=== PATIENT | male | born 1940 | race Caucasian/White ===

== ENCOUNTER → 2019-12-09 | Outpatient (CLI) | payer MEDICARE ==
[~2019-12-09] MED LIST: ACET500T73 PO; AMLO5TAB10 PO; ASPI325T14 PO; ATOR40TA PO; AZIT500T PO; Aspirin PO; BUDE180A IH; CARV6.25 PO; CARV6.252 PO; CEPH250C PO; FLUT1AER IH; FLUT1BLS IH; LEVO50TA6 PO; LISI1TAB19 PO; LORA10TA3 PO; LOSA100T14 PO; OMEP20CA19 PO; POTA10TA10 PO; PRAV40TA2 PO; SPIR25TA PO
== END | disposition home or self-care (01) ==
LOC: SLAB 19:43
PROVIDERS: ATTEND Specialist
DX: G47.33 Obstructive sleep apnea (adult) (pediatric) (principal); G47.10 Hypersomnia, unspecified
CPT/HCPCS: 95810

== ENCOUNTER 2020-08-12 01:07 | Emergency (ER) | payer MEDICARE ==
[~2020-08-12] VITALS: Ht 175.3 cm; Wt 99.8 kg
[~2020-08-12 01:07] MED LIST changes: +AMLO-169 PO; -AMLO5TAB10 PO; -LISI1TAB19 PO; +LISI1TAB39 PO
[2020-08-12 01:17] VITALS: BP 163/77
[2020-08-12] MEDS ORDERED: ANTIVERT PO STA (01:31)
--- NOTE | 2020-08-12 01:33 | NUR ---
PUPILS PATIENT INFORMED PHYSICIAN THAT HE WAS TOLD RECENTLY AT A [employer] APPOINTMENT THAT ONE PUPIL IS LARGER THAN THE OTHER, STATES HE HAS "APPARENTLY HAD IT A LONG TIME, AND I NEVER KNEW IT."
[2020-08-12] MEDS ORDERED: ANTIVERT ONE (01:35)
--- NOTE | 2020-08-12 01:38 | ER.PDOC ---
General Chief Complaint: Dizziness Stated Complaint: DIZZINESS Time seen by MD: 01:25 Source: patient Exam Limitations: no limitations History of Present Illness Initial Comments Patient c/o progressively worsening 2 day history of "dizziness" which he describes as rotational movement, worse with positional change. Occurred: yesterday Severity: moderate Associated Symptoms: nausea/vomiting, sense of movement, spinning Usually: walks w/o assistance Worsened By: changing position, movement of head Prior symptoms/Treatment: Similar symptoms previous (never this bad or persistent) Allergies: Coded Allergies: No Known Allergies (Unverified , 01/24/18) Home Meds Active Scripts Carvedilol (CARVEDILOL) 6.25 Mg Tablet, 6.25 MG PO BID for 30 Days, TABLET Prov:MARCOS ARMAS MD 02/10/17 Reported Medications Fluticasone/Vilanterol (Breo Ellipta 200-25 Mcg INH) 1 Each Blst.w.dev, 1 EACH IH DAILY24 01/27/18 Fluticasone/Vilanterol (Breo Ellipta 200-25 Mcg INH) 1 Each Blst.w.dev, 2 EACH IH DAILY24 01/24/18 Spironolactone 25MG (ALDACTONE 25MG) 25 Mg Tablet, 1 TAB PO DAILY, #90 TAB 1 Refill 01/24/18 Atorvastatin 40MG (LIPITOR 40MG) 40 Mg Tablet, 1 TAB PO DAILY, #30 TAB 5 Refills 02/04/17 Losartan Potassium (LOSARTAN POTASSIUM) 100 Mg Tablet, 1 TAB PO DAILY, #30 TAB 5 Refills 02/04/17 Levothyroxine Sodium (LEVOTHYROXINE SODIUM) 50 Mcg Tablet, 50 MCG PO DAILY, TABLET 03/24/14 Past Medical History Medical History: arrhythmia, cardiac problems, COPD, high cholesterol, hypertension, other (perforated duodenal ulcer; unequal pupils longstanding) Surgical History: back, pacemaker/ICD, other (laparotomy; cataracts) Family History Significant Family History: no pertinent family hx Social History Smoking: quit greater than 1 year Alcohol Use: none Drug Use: none Review of Systems Constitutional: no symptoms reported Eyes: no symptoms reported Ears: no symptoms reported Nose: no symptoms reported Mouth: no symptoms reported Throat: no symptoms reported Respiratory: no symptoms reported Cardiovascular: no symptoms reported Gastrointestinal: nausea Genitourinary: no symptoms reported Musculoskeletal: no symptoms reported Skin: no symptoms reported Psychiatric/Neurological: other (dizziness with positional change) Physical Exam General Appearance: alert, no distress EENT: no nystagmus, unequal pupils (right 4mm, left 2mm) Neck: supple Respiratory: no resp distress, breath sounds nml CVS: reg rate & rhythm, heart sounds.nml Abdomen: non-tender, no distention Skin: color nml, no rash, warm/dry Extremities: non-tender, nml ROM, no pedal edema Neuro/Psych: nml orientation, nml speech/cognition, nml mood/affect Cranial Nerves: nml as tested, no evidence of acute CVA Sensorimotor: nml motor Results/Orders Results/Orders Orders - JOSE WILDE DO Cbc With Auto Diff (08/12/20 01:31) Comprehensive Metabolic Panel (08/12/20:) Creatine Kinase (08/12/20:31) PT (08/12/20:31) Xr Chest 1v (08/12/20:31) Partial Thromboplastin Time. (08/12/20:31) Troponin I (08/12/20:31) Ekg-Routine (08/12/20 01:31) Ct Head Wo Contrast (08/12/20:31) Saline Lock (08/12/20:31) Meclizine Hcl (Antivert) (08/12/20 01:31) 0.9 % Sodium Chloride (Ns 1000ml) (08/12/20 02:14) 0.9 % Sodium Chloride (Ns 1000ml) (08/12/20 02:12) Vital Signs Date Time Temp Pulse Resp B/P (MAP) Pulse Ox O2 Delivery O2 Flow Rate FiO2 08/12/20 01:17 97.0 66 16 100 08/12/20 01:17 97.0 66 16 08/12/20 01:17 97.0 66 16 163/77 (105) 100 Administered Medications Medications (Trade) Dose Ordered Sig/Holly Route PRN Reason Start Time Stop Time Status Last Admin Dose Admin Meclizine HCl (Antivert) 50 mg STAT STAT PO 08/12/20 01:31 08/12/20 01:32 UNV 08/12/20 01:38 50 MG Laboratory Tests Test 08/12/20 01:40 White Blood Count 9.8 10^3/uL (4.5-11.0) Red Blood Count 4.77 10^6/uL (4.50-5.90) Hemoglobin 14.8 g/dL (13.9-16.3) Hematocrit 44.4 % (37.0-53.0) Mean Corpuscular Volume 93.1 fL (78-100) Mean Corpuscular Hemoglobin 31.0 pg (26-34) Mean Corpuscular Hemoglobin Concent 33.3 g/dL (33-36.5) Red Cell Distribution Width 13.1 % (11.5-14.5) Platelet Count 236 10^3/uL (150-400) Mean Platelet Volume 10.4 fL (7.8-11.0) Neutrophils (%) (Auto) 63.2 % (41.0-85.0) Lymphocytes (%) (Auto) 20.0 % (24.0-44.0) L Monocytes (%) (Auto) 11.7 % (5.0-12.0) Neutrophils # (Auto) 6.2 10^3/uL (1.8-7.7) Lymphocytes # (Auto) 1.97 10^3/uL1 (1.0-4.8) Monocytes # (Auto) 1.2 10^3/uL (0.3-0.8) H Absolute Immature Granulocyte (auto 0.02 10^3 u/L (0-2) Absolute Eosinophils (auto) 0.4 10^3/uL (0.0-0.2) H Immature Granulocytes % 0.20 % (0.00-0.50) Eosinophils % 4.0 % (0.0-5.0) Basophils % 0.9 % (0.0-0.2) H Basophils # 0.1 10^3/uL (0.0-0.1) Prothrombin Time 10.3 SEC (9.3-11.3) Prothrombin Time INR (Non-Therap) 1.0 Activated Partial Thromboplast Time 23.8 SEC (24.67-30.72) Sodium Level 139 mmol/L (132-145) Potassium Level 4.4 mmol/L (3.6-5.2) Chloride Level 106.0 mmol/L (96-109) Carbon Dioxide Level 24.4 mmol/L (20.0-32) Anion Gap 13.0 Blood Urea Nitrogen 22 mg/dL (7-18) H Creatinine 1.45 mg/dL (0.59-1.40) H Estimated GFR () 56.8 (>/=60) Est GFR (CKD-EPI)(Non-Afr Nigerien) 46.9 (>/=60) BUN/Creatinine Ratio 15.0 Glucose Level 115 mg/dL (70-110) H Calcium Level 8.7 mg/dL (8.4-10.5) Total Bilirubin 0.4 mg/dL (0.2-1.0) Aspartate Amino Transferase (AST) 20 U/L (0-35) Alanine Aminotransferase (ALT) 37 U/L (12-78) Alkaline Phosphatase 83 U/L (50-136) Total Creatine Kinase 164 U/L (39-308) Troponin I < 0.02 ng/mL (0.00-0.05) Total Protein 7.3 g/dL (6.4-8.2) Albumin 3.7 g/dL (3.4-5.0) Globulin 3.6 Albumin/Globulin Ratio 1.027 Progress Progress BUN/creat slightly elevated--1L NS bolused. Vertigo has improved with meclizine. EKG/XRAY/CT/US EKG Comments: NSR, VR 82, multiform PVCs, QT 409, no acute STT changes XRAY: chest (no acute dz process) CT Comments: no acute intracranial pathology ER DEPART Departure Time of Disposition: 02:36 Disposition: 01 HOME, SELF-CARE Impression: Primary Impression: Vertigo Additional Impression: Volume depletion Condition: Improved Patient Instructions: Benign Positional Vertigo Referrals: PCP,UNKNOWN (PCP) PRIMARY CARE PROVIDER Additional Instructions: Drink at least 6 eight-ounce valladares daily. Take meclizine as prescribed when needed for dizziness/vertigo. Return to ER for any emergent concerns. Follow up with your doctor next week for reevaluation. Duration or Time Spent with Pa: 25 min Problem Qualifiers JOSE WILDE DO Aug 12, 2020 01:38
--- NOTE | 2020-08-12 01:41 | NUR ---
CT PATIENT TAKEN TO CT AT THIS TIME VIA STRETCHER BY JOLYNN
[2020-08-12 01:50] LABS: BASOPHIL # 0.1 10^3/uL (0.0-0.1); BASOPHIL % 0.9 % (0.0-0.2); EOSINOPHIL # 0.4 10^3/uL (0.0-0.2); LYMPHOCYTES # 1.97 10^3/uL1 (1.0-4.8); MONOCYTES # 1.2 10^3/uL (0.3-0.8); MONOCYTES % 11.7 % (5.0-12.0); NEUTROPHIL # 6.2 10^3/uL (1.8-7.7); NEUTROPHILS % 63.2 % (41.0-85.0); PLATELET COUNT 236 10^3/uL (150-400); RED CELL DISTRIBUTION WIDTH 13.1 % (11.5-14.5)
--- NOTE | 2020-08-12 01:58 | PCM.EKG ---
[facility] Test Date: 2020-08-12 Test Time: 01:55:54 Pat Name: DALE SOLIMAN Department: Room: Gender: M Artist Scientific: TG : 1940 Requested By: JOSE ROBERTSON Order Number: [id number] Reading MD: Danya Robertson Measurements Intervals [place] Rate: 82 P: 78 FL: 196 QRS: 55 QRSD: 80 T: 63 QT: 409 QTc: 478 Interpretive Statements Sinus rhythm Multiform ventricular premature complexes No previous ECG available for comparison Electronically Signed On 08-15-2020 7:12:15 CDT by Danya Robertson Please click the below link to view image of tracing.
[2020-08-12 02:11] LABS: ALANINE AMINOTRANSFERASE(ML) 37 U/L (12-78); ALKALINE PHOSPHATASE 83 U/L (50-136); ASPARTATE AMINO TRANSFERASE 20 U/L (0-35); CALCIUM 8.7 mg/dL (8.4-10.5); CARBON DIOXIDE 24.4 mmol/L (20.0-32); GLUCOSE 115 mg/dL (70-110)
[2020-08-12] MEDS ORDERED: NS 1000ML 1,000 ML ONE (02:12)
[2020-08-12] MEDS ORDERED: NS 1000ML 1,000 ML STA (02:14)
--- NOTE | 2020-08-12 02:24 | DIREP ---
PROCEDURE:CT HEAD OR BRAIN W/O CONTRAST COMPARISON:None. INDICATIONS:dizziness TECHNIQUE:CT images were created without intravenous contrast. FINDINGS: VENTRICLES:The ventricles are normal in size and configuration. CEREBRUM:Small foci of diminished attenuation in the supratentorial white matter consistent with mild leukoaraiosis. Probable prominent perivascular space in the left basal ganglia. CEREBELLUM:Negative. BRAINSTEM:Negative. BASAL CISTERNS:Negative. HEMORRHAGE:No MASS LESION:No ACUTE INFARCT:No SKULL:Normal. SINUSES:Mild mucosal thickening in the ethmoid air cells and left maxillary sinus. OTHER:Intracranial vascular calcifications are noted. 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 CONCLUSION:No acute intracranial abnormality. Small foci of diminished attenuation in the supratentorial white matter compatible with chronic microangiopathic changes. Dictated by: Uli Cortes MD. on 08/12/2020 at 02:19 AM
--- NOTE | 2020-08-12 02:26 | DIREP ---
PROCEDURE:CHEST 1 VIEW COMPARISON:[facility], CR, XRAY CHEST 2 VWS, 01/24/2018, 10:04 AM. [facility], CR, XRAY CHEST 2 VWS, 12/31/2017, 03:46 PM. INDICATIONS:dizziness FINDINGS: LUNGS/PLEURA:Background of chronic lung disease with increased reticular opacities and subsegmental atelectasis/scarring in the left lung base. No significant pulmonary parenchymal abnormalities. No effusions. VASCULATURE:Normal. Unremarkable pulmonary vasculature. CARDIAC:Normal. No cardiac silhouette abnormality or cardiomegaly. MEDIASTINUM:Atherosclerotic aorta with no visible aneurysm. BONES:Degenerative changes in the spine and shoulders. OTHER:Stable left subclavian approach AICD. CONCLUSION:No acute cardiopulmonary process or significant interval change. Dictated by: Uli Cortes MD. on 08/12/2020 at 02:23 AM
--- NOTE | 2020-08-12 03:15 | NUR ---
DISCHARGE DR. WILDE SPOKE WITH PATIENT REGARDING TEST/LAB RESULTS, DISCHARGE BACK HOME PATIENT STATED HE HAS ABSOLUTELY NO ONE TO TAKE HIM BACK HOME. THE REASON HE CALLED THE AMBULANCE WAS BECAUSE HE WAS TOO DIZZY TO DRIVE HIM SELF HERE. DR. WILDE EXPLAINED TO THE PATIENT THAT HE COULD STAY IN THE ROOM UNTIL DAYTIME AND A RIDE WILL BE ARRANGED FOR HIM. PATIENT VERBALIZED UNDERSTANDING, DISCHARGE PAPERS PREPARED, ROOM DARKENED, WARM BLANKETS PROVIDED.
--- NOTE | 2020-08-12 04:13 | NUR ---
RESTROOM PATIENT STATED THAT HE NEEDED TO USE THE RESTROOM. BOAT WRAPPER ASSISTED PATIENT TO RESTROOM VIA WHEELCHAIR.
== END 2020-08-12 03:45 | disposition home or self-care (01) ==
LOC: EDBD 01:07 → ER 01:07
DX: E86.9 Volume depletion, unspecified (principal); R42 Dizziness and giddiness; R11.2 Nausea with vomiting, unspecified; J44.9 Chronic obstructive pulmonary disease, unspecified; E78.00 Pure hypercholesterolemia, unspecified; I10 Essential (primary) hypertension; Z79.51 Long term (current) use of inhaled steroids; Z79.899 Other long term (current) drug therapy; Z95.0 Presence of cardiac pacemaker; Z87.891 Personal history of nicotine dependence
CPT/HCPCS: 36415; 70450; 71045; 80053; 82550; 84484; 85025; 85610; 85730; 93005; 96360; 99285; J7030; J8597

== ENCOUNTER 2021-10-08 18:29 | Emergency (ER) | payer MEDICARE ==
[~2021-10-08] VITALS: Ht 175.3 cm; Wt 97.5 kg
[2021-10-08] MEDS ORDERED: DEXAMETHASONE 10 MG/ML VIAL IV STA (19:39)
[2021-10-08] MEDS ORDERED: DUO 0.5-3(2.5) MG/3 ML IH STA (19:39)
[2021-10-08 19:41] VITALS: BP 142/96
--- NOTE | 2021-10-08 20:06 | DIREP ---
PROCEDURE:CHEST 1 VIEW COMPARISON:[facility], CR, XRAY CHEST SINGLE VW, 08/12/2020, 01:23 AM. INDICATIONS:dyspnea and cough FINDINGS: LUNGS/PLEURA:No significant pulmonary parenchymal abnormalities. No effusions. VASCULATURE:Normal. Unremarkable pulmonary vasculature. CARDIAC:Normal. No cardiac silhouette abnormality or cardiomegaly. MEDIASTINUM:Normal. No visible mass or adenopathy. BONES:Normal. No fracture or visible bony lesion. OTHER:Multi lead left ICD CONCLUSION:Negative exam Dictated by: Driss Hunt M.D. on 10/08/2021 at 08:03 PM
[2021-10-08] MEDS ORDERED: DUO 0.5-3(2.5) MG/3 ML IH ONE (20:24)
--- NOTE | 2021-10-08 20:24 | NUR ---
RT unable to admin HHN, done by RN.
[2021-10-08] MEDS ORDERED: DECADRON ONE (20:25)
--- NOTE | 2021-10-08 20:30 | NUR ---
20g SL started to RAC x'1 attempt, blood obtained and sent to lab.
--- NOTE | 2021-10-08 20:46 | ER.PDOC ---
General Chief Complaint: Dyspnea/Respdistress Stated Complaint: SOB Time seen by MD: 19:21 Source: patient Exam Limitations: no limitations History of Present Illness Initial Comments 81-year-old male with a history of COPD comes in today with worsening shortness of breath and productive cough. Patient states that he has had symptoms now for over a week of cough and shortness of breath. Patient states that his doctor had given him an antibiotic for 5 days which he took with his symptoms did not improve he was then switched to Levaquin which he finished today but states he still feels short of breath, orthopnea, yellow sputum, no fever, no chills, no leg swelling, no chest pain, no other symptomatology that he is concerned about. Patient states he typically gets a shot of steroids in his nebulizer treatment with antibiotics and feels better. Severity: moderate Activities at Onset: activity/exertion Prior Episodes/Possible Cause: no prior episodes Modifying Factors: improves with activity, improves with albuterol nebulizer, improves with coughing, improves with lying down Allergies: Coded Allergies: No Known Allergies (Unverified , 01/24/18) Home Meds Active Scripts Carvedilol (CARVEDILOL) 6.25 Mg Tablet, 6.25 MG PO BID for 30 Days, TABLET Prov:MARCOS ARMAS MD 02/10/17 Reported Medications Fluticasone/Vilanterol (Breo Ellipta 200-25 Mcg INH) 1 Each Blst.w.dev, 1 EACH IH DAILY24 01/27/18 Fluticasone/Vilanterol (Breo Ellipta 200-25 Mcg INH) 1 Each Blst.w.dev, 2 EACH IH DAILY24 01/24/18 Spironolactone 25MG (ALDACTONE 25MG) 25 Mg Tablet, 1 TAB PO DAILY, #90 TAB 1 Refill 01/24/18 Atorvastatin 40MG (LIPITOR 40MG) 40 Mg Tablet, 1 TAB PO DAILY, #30 TAB 5 Refills 02/04/17 Losartan Potassium (LOSARTAN POTASSIUM) 100 Mg Tablet, 1 TAB PO DAILY, #30 TAB 5 Refills 02/04/17 Levothyroxine Sodium (LEVOTHYROXINE SODIUM) 50 Mcg Tablet, 50 MCG PO DAILY, TABLET 03/24/14 Past Medical History Medical History: cardiac problems, COPD, high cholesterol, hypertension Surgical History: no surgical history Social History Alcohol Use: none Drug Use: none Review of Systems Constitutional: denies no symptoms reported, denies see HPI, denies chills, denies diaphoresis, denies fever, denies malaise, denies weakness, denies other Respiratory: cough, orthopnea, shortness of breath Cardiovascular: denies no symptoms reported, denies see HPI, denies chest pain, denies edema, denies palpitations, denies syncope, denies other Musculoskeletal: denies no symptoms reported, denies see HPI, denies back pain, denies gout, denies joint pain, denies joint swelling, denies muscle pain, denies muscle stiffness, denies neck pain, denies other All Other Systems: Reviewed and Negative Physical Exam General Appearance: No Apparent Distress, WD/WN HEENT: PERRL/EOMI, Normal ENT Inspection, Pharynx Normal Neck: Non-Tender, Full Range of Motion, Supple, Normal Inspection Respiratory: chest non-tender, no respiratory distress, accessory muscle use, wheezing, expiration, inspiration Cardiovascular: Normal Peripheral Pulses, Regular Rate, Rhythm, No Edema, No Gallop, No JVD, No Murmur Gastrointestinal: Normal Bowel Sounds, No Organomegaly, No Pulsatile Mass, Non Tender, Soft Rectal: Normal Exam Extremities: Normal Range of Motion, Non-Tender, Normal Inspection, No Pedal Edema, No Calf Tenderness, Normal Capillary Refill Neurologic/Psychiatric: No Motor/Sensory Deficits, Alert, Normal Mood/Affect, Oriented x 3 Skin: Normal Color, Warm/Dry Lymphatic: No Adenopathy Results/Orders Results/Orders Orders - EJESIEME,DOMINIC C DO Covid19 Antigen Khushi Jayshree (10/08/21 19:39) Influenza A&B (10/08/21 19:39) Cbc With Auto Diff (10/08/21 19:39) Comprehensive Metabolic Panel (10/08/21 19:39) Probnp B-Type Hand Stitcher (10/08/21 19:39) Troponin I High Sensitivity (10/08/21 19:39) Xr Chest 1v (10/08/21 19:39) Ipratropium/Albuterol Sulfate (Duo 0.5-3 (10/08/21 19:39) Dexamethasone Sodium Phosp/Pf (Dexametha (10/08/21 19:39) Ipratropium/Albuterol Sulfate (Duo 0.5-3 (10/08/21 20:24) Dexamethasone Sodium Phosphate (Decadron (10/08/21 20:25) Ekg-Routine (10/08/21 20:46) Vital Signs Date Time Temp Pulse Resp B/P (MAP) Pulse Ox O2 Delivery O2 Flow Rate FiO2 10/08/21 19:41 98.2 84 20 10/08/21 19:41 98.2 84 20 93 10/08/21 19:41 98.2 84 20 142/96 (111) 93 Room Air Administered Medications Medications (Trade) Dose Ordered Sig/Holly Route PRN Reason Start Time Stop Time Status Last Admin Dose Admin Albuterol/ Ipratropium (Duo 0.5-3(2.5) Mg/3 ml) 3 ml STAT STAT IH 10/08/21 19:39 10/08/21 19:42 DC 10/08/21 20:35 3 ML Laboratory Tests Test 10/08/21 20:40 White Blood Count 12.3 10^3/uL (4.5-11.0) H Red Blood Count 5.22 10^6/uL (4.50-5.90) Hemoglobin 16.4 g/dL (13.9-16.3) H Hematocrit 50.3 % (37.0-53.0) Mean Corpuscular Volume 96.4 fL (78-100) Mean Corpuscular Hemoglobin 31.4 pg (26-34) Mean Corpuscular Hemoglobin Concent 32.6 g/dL (33-36.5) L Red Cell Distribution Width 13.2 % (11.5-14.5) Platelet Count 250 10^3/uL (150-400) Mean Platelet Volume 10.7 fL (7.8-11.0) Neutrophils (%) (Auto) 65.7 % (41.0-85.0) Lymphocytes (%) (Auto) 15.7 % (24.0-44.0) L Monocytes (%) (Auto) 8.7 % (5.0-12.0) Neutrophils # (Auto) 8.1 10^3/uL (1.8-7.7) H Lymphocytes # (Auto) 1.92 10^3/uL1 (1.0-4.8) Monocytes # (Auto) 1.1 10^3/uL (0.3-0.8) H Absolute Immature Granulocyte (auto 0.02 10^3 u/L (0-2) Absolute Eosinophils (auto) 1.1 10^3/uL (0.0-0.2) H Immature Granulocytes % 0.20 % (0.00-0.50) Eosinophils % 8.6 % (0.0-5.0) H Basophils % 1.1 % (0.0-0.2) H Basophils # 0.1 10^3/uL (0.0-0.1) Sodium Level 137 mmol/L (132-145) Potassium Level 4.9 mmol/L (3.6-5.2) Chloride Level 103.0 mmol/L (96-109) Carbon Dioxide Level 23.0 mmol/L (20.0-32) Anion Gap 15.9 Blood Urea Nitrogen 37 mg/dL (7-18) H Creatinine 1.91 mg/dL (0.59-1.40) H Estimated GFR () 41.2 (>/=60) Est GFR (CKD-EPI)(Non-Afr Polish) 34.1 (>/=60) BUN/Creatinine Ratio 19.0 Glucose Level 119 mg/dL (70-110) H Calcium Level 9.6 mg/dL (8.4-10.5) Total Bilirubin 0.5 mg/dL (0.2-1.0) Aspartate Amino Transferase (AST) 27 U/L (0-35) Alanine Aminotransferase (ALT) 27 U/L (12-78) Alkaline Phosphatase 86 U/L (50-136) Troponin I High Sensitivity 9 ng/L (0-75) Pro-B-Type Natriuretic Peptide 58 pg/mL (0-450) Total Protein 8.1 g/dL (6.4-8.2) Albumin 4.1 g/dL (3.4-5.0) Globulin 4.0 Albumin/Globulin Ratio 1.025 Influenza Type A Antigen NEGATIVE (NEG) Influenza Type B Antigen NEGATIVE (NEG) SARS-CoV-2 Antigen (Rapid) NEGATIVE (NEGATIVE) Progress Progress 81-year-old male with a history of COPD presenting with cough and worsening shortness of breath. Patient is not hypoxic, not tachycardic, afebrile. Patient has already had 2 antibiotic courses with no improvement I do feel that patient is having a COPD exacerbation and have a low suspicion/low likelihood of infectious process given the failure to both/2 antibiotics. This does not preclude or exclude viral pneumonia which may be part of patient's symptomatolog y. Will treat with albuterol for home prednisone taper and close monitoring and follow-up. Patient instructed to get a home pulse oximeter if oxygen were to fall less than 92% he is to return to ED for further evaluation EKG/XRAY/CT/US EKG Comments: EKG at 9:13 PM sinus rhythm at a rate of 77 PVCs, QTC at 417. No STEMI, no ER DEPART Departure Time of Disposition: 21:29 Disposition: 01 HOME / SELF CARE / HOMELESS Impression: Primary Impression: Chronic obstructive pulmonary disease Condition: Stable Patient Instructions: Chronic Obstructive Pulmonary Disease Exacerbation, Lltz-of-Ntty Referrals: MARCOS ARMAS MD (PCP) PRIMARY CARE PROVIDER Duration or Time Spent with Pa: 45 min DOMINIC HAJI DO Oct 08, 2021 20:46
[2021-10-08 20:53] LABS: BASOPHIL # 0.1 10^3/uL (0.0-0.1); BASOPHIL % 1.1 % (0.0-0.2); EOSINOPHIL # 1.1 10^3/uL (0.0-0.2); EOSINOPHIL % 8.6 % (0.0-5.0); LYMPHOCYTES # 1.92 10^3/uL1 (1.0-4.8); LYMPHOCYTES % 15.7 % (24.0-44.0); MEAN CORP HGB 31.4 pg (26-34); MONOCYTES # 1.1 10^3/uL (0.3-0.8); MONOCYTES % 8.7 % (5.0-12.0); NEUTROPHIL # 8.1 10^3/uL (1.8-7.7); NEUTROPHILS % 65.7 % (41.0-85.0); PLATELET COUNT 250 10^3/uL (150-400); RED CELL DISTRIBUTION WIDTH 13.2 % (11.5-14.5)
--- NOTE | 2021-10-08 21:15 | NUR ---
Lab- Pt is negative for Covid, EDP notified.
[2021-10-08 21:35] VITALS: BP 138/82
--- NOTE | 2021-10-08 21:35 | NUR ---
SL dc'd with cath intact. Site secured with coban. No bleeding noted.
--- NOTE | 2021-10-09 08:14 | PCM.EKG ---
[facility] Test Date: 2021-10-08 Test Time: 21:13:26 Pat Name: DALE SOLIMAN Department: Room: Gender: M Dynamite Shooter: : 1940 Requested By: EVELYN BURGESS Order Number: [id number] Reading MD: Evelyn Burgess Measurements Intervals [place] Rate: 77 P: 74 ND: 190 QRS: 59 QRSD: 79 T: 56 QT: 368 QTc: 417 Interpretive Statements Sinus rhythm Multiform ventricular premature complexes Compared to ECG 08/12/2020 01:55:54 No significant changes Electronically Signed On 10-09-2021 18:26:07 CROSSTIE INSPECTOR by Evelyn Burgess Please click the below link to view image of tracing.
== END 2021-10-08 21:35 | disposition home or self-care (01) ==
LOC: ER 18:29
DX: J44.9 Chronic obstructive pulmonary disease, unspecified (principal); E78.00 Pure hypercholesterolemia, unspecified; I10 Essential (primary) hypertension; Z20.822 Contact with and (suspected) exposure to COVID-19; Z79.51 Long term (current) use of inhaled steroids; Z79.899 Other long term (current) drug therapy
CPT/HCPCS: 71045; 80053; 83880; 84484; 85025; 87426; 87804 ×2; 93005; 94640; 96374; 99285; J1100

== ENCOUNTER 2022-01-29 07:17 | Emergency (ER) | payer MEDICARE ==
[2022-01-29 07:17] VITALS: BP 129/72
[2022-01-29 07:20] VITALS: BP 129/72
--- NOTE | 2022-01-29 07:25 | ER.PDOC ---
General Chief Complaint: Requesting Medical Care Stated Complaint: RIGHT ARM PAIN,CHEST PAIN Time seen by MD: 07:24 Source: patient Exam Limitations: no limitations History of Present Illness Initial Comments Patient presented with chest pain over 1 week ago. Has cardiac pacemaker. Poor historian. Timing/Duration: 1 week Severity/Quality: mild Radiation: shoulders, other Activities at Onset: none Nitro Today/Relief: No Nitro Taken Today Associated Symptoms: shortness of breath Prior symptoms/Treatment: Similar symptoms previous Allergies: Coded Allergies: No Known Allergies (Unverified , 01/24/18) Home Meds Active Scripts Carvedilol (CARVEDILOL) 6.25 Mg Tablet, 6.25 MG PO BID for 30 Days, TABLET Prov:MARCOS ARMAS MD 02/10/17 Reported Medications Fluticasone/Vilanterol (Breo Ellipta 200-25 Mcg INH) 1 Each Blst.w.dev, 1 EACH IH DAILY24 01/27/18 Fluticasone/Vilanterol (Breo Ellipta 200-25 Mcg INH) 1 Each Blst.w.dev, 2 EACH IH DAILY24 01/24/18 Spironolactone 25MG (ALDACTONE 25MG) 25 Mg Tablet, 1 TAB PO DAILY, #90 TAB 1 Refill 01/24/18 Atorvastatin 40MG (LIPITOR 40MG) 40 Mg Tablet, 1 TAB PO DAILY, #30 TAB 5 Refills 02/04/17 Losartan Potassium (LOSARTAN POTASSIUM) 100 Mg Tablet, 1 TAB PO DAILY, #30 TAB 5 Refills 02/04/17 Levothyroxine Sodium (LEVOTHYROXINE SODIUM) 50 Mcg Tablet, 50 MCG PO DAILY, TABLET 03/24/14 Past Medical History Medical History: cardiac problems, COPD, high cholesterol, hypertension Surgical History: no surgical history Social History Drug Use: none Respiratory: cough, shortness of breath Musculoskeletal: muscle pain, other All Other Systems: Reviewed and Negative Physical Exam General Appearance: Mild Distress HEENT: PERRL/EOMI Neck: Full Range of Motion, Supple Respiratory: wheezing, expiration Cardiovascular: Normal Peripheral Pulses, No Edema Gastrointestinal: Normal Bowel Sounds, No Organomegaly Extremities: Normal Range of Motion Skin: Normal Color Lymphatic: No Adenopathy Results/Orders Results/Orders Orders - KAREN MARS MD Cbc With Auto Diff (01/29/22 07:22) Comprehensive Metabolic Panel (01/29/22 07:22) Creatine Kinase (01/29/22 07:22) Creatine Kinase Mb (01/29/22 07:22) Probnp B-Type Slitting Machine Feeder (01/29/22 07:22) PT (01/29/22 07:22) Partial Thromboplastin Time. (01/29/22 07:22) D-Dimer (01/29/22 07:22) Xr Chest 1v (01/29/22 07:22) Ekg-Routine (01/29/22 07:22) Troponin I High Sensitivity (01/29/22 07:22) Progress Progress stable. trops neg. EKG/XRAY/CT/US EKG: nonspecific ST T wave chg EKG Comments: Paced @ 63 bpm with pvc/s. ER DEPART Departure Time of Disposition: 11:13 Disposition: 01 HOME / SELF CARE / HOMELESS Impression: Primary Impression: Chest pain Additional Impression: Right shoulder strain Condition: Stable Referrals: MARCOS ARMAS MD (PCP) PRIMARY CARE PROVIDER Duration or Time Spent with Pa: 1 hr Problem Qualifiers KAREN MARS MD Jan 29, 2022 07:25
--- NOTE | 2022-01-29 07:36 | PCM.EKG ---
[facility] Test Date: 2022-01-29 Test Time: 07:29:46 Pat Name: DALE SOLIMAN Department: Room: Gender: M Technical Supervisor: JULIO : 1940 Requested By: KAREN MARS Order Number: [id number] Reading MD: Measurements Intervals [place] Rate: 63 P: 62 HI: 173 QRS: 43 QRSD: 78 T: 46 QT: 363 QTc: 372 Interpretive Statements Sinus rhythm Multiple premature complexes, vent & supraven ST elevation, consider lateral injury Compared to ECG 10/08/2021 21:13:26 ST (T wave) deviation now present Myocardial infarct finding now present Ventricular premature complex(es) no longer present Please click the below link to view image of tracing.
[2022-01-29 07:45] LABS: BASOPHIL # 0.1 10^3/uL (0.0-0.1); BASOPHIL % 0.7 % (0.0-0.2); EOSINOPHIL # 0.2 10^3/uL (0.0-0.2); EOSINOPHIL % 1.6 % (0.0-5.0); LYMPHOCYTES # 1.88 10^3/uL1 (1.0-4.8); LYMPHOCYTES % 17.5 % (24.0-44.0); MEAN CORP HGB 31.7 pg (26-34); MONOCYTES # 0.8 10^3/uL (0.3-0.8); MONOCYTES % 7.6 % (5.0-12.0); NEUTROPHIL # 7.8 10^3/uL (1.8-7.7); NEUTROPHILS % 72.3 % (41.0-85.0); RED CELL DISTRIBUTION WIDTH 13.7 % (11.5-14.5)
--- NOTE | 2022-01-29 08:03 | NUR ---
CRITICAL LAB D-DIMER 0.97 REPORTED BY LAB, DR. ASHLEY NOTIFIED, VERBALIZED UNDERSTANDING.
[2022-01-29] MEDS ORDERED: SOLU-MEDROL IM STA (08:04)
[2022-01-29] MEDS ORDERED: DUO 0.5-3(2.5) MG/3 ML IH STA (08:04)
--- NOTE | 2022-01-29 08:06 | DIREP ---
PROCEDURE:CHEST 1 VIEW COMPARISON:[facility], CR, XRAY CHEST SINGLE VW, 10/08/2021, 07:45 PM. INDICATIONS:Chest pain FINDINGS: LUNGS/PLEURA:No significant pulmonary parenchymal abnormalities. No effusions. VASCULATURE:Normal. Unremarkable pulmonary vasculature. CARDIAC:Cardiac AICD. MEDIASTINUM:Calcified aorta BONES:Degenerative changes. OTHER:Negative. CONCLUSION:No acute pulmonary process. Dictated by: Kathleen Lopez M.D. on 01/29/2022 at 08:03 AM
[2022-01-29] MEDS ORDERED: SOLU-MEDROL IV STA (08:08)
[2022-01-29] MEDS ORDERED: ASPIRIN PO STA (08:08)
[2022-01-29 08:09] LABS: CARBON DIOXIDE 24.1 mmol/L (20.0-32)
[2022-01-29] MEDS ORDERED: ASPIRIN ONE (08:09)
[2022-01-29] MEDS ORDERED: DUO 0.5-3(2.5) MG/3 ML IH ONE (08:11)
[2022-01-29] MEDS ORDERED: SOLU-MEDROL ONE (08:11)
--- NOTE | 2022-01-29 08:51 | DIREP ---
PROCEDURE:US DUPLEX EXTREM VEINS UNILATER/LIMITED-RT COMPARISON:None. INDICATIONS:RUE PAIN TECHNIQUE:Graded compression, color flow and spectral analysis of the right upper extremity was performed in the usual manner. FINDINGS: Internal Jugular:Visualized portions are patent. Subclavian:Visualized portions are patent. Axillary:Patent. Brachial:Patent. Cephalic:Patent. Basilic:Patent. Radial:Patent. Ulnar:Patent. Doppler evaluation: Normal color flow and normal waveforms. CONCLUSION: 1. No DVT identified in the right upper extremity. Dictated by: Gaye Ly MD on 01/29/2022 at 08:43 AM
--- NOTE | 2022-01-29 10:48 | DIREP ---
PROCEDURE:CTA CHEST COMPARISON:[facility], [place], US DUPLEX LOWER EXTREM VEINS UNILATER/LIMITED-RT, 01/29/2022, 08:04 AM. INDICATIONS:Chest pain TECHNIQUE:Post contrast axial images through the chest with multiplanar MIP/3D reconstructions. FINDINGS: PULMONARY ARTERIES:Patent. LUNGS:No significant pulmonary parenchymal abnormalities. Central airways clear. Ground-glass opacities to indicate active pneumonitis are not identified. Minimal peripheral and basilar scar. PLEURA:No effusion. No pneumothorax CARDIAC:Coronary artery calcifications. Pacemaker. Normal size heart and normal pulmonary vascularity. THORACIC AORTA:Normal. MEDIASTINUM:Normal. THYROID:Normal. BONES:[id number] degenerative changes of the spine. OTHER:No additional findings. CONCLUSION:No pulmonary emboli. The lungs are predominantly clear. No acute findings Dictated by: Joaquin El MD on 01/29/2022 at 10:41 AM
[2022-01-29] MEDS ORDERED: SPS PO STA (12:03)
[2022-01-29] MEDS ORDERED: SPS ONE (12:47)
== END 2022-01-29 12:45 | disposition home or self-care (01) ==
LOC: ER 07:17
DX: S46.911A Strain of unspecified muscle, fascia and tendon at shoulder and upper arm level, right arm, initial encounter (principal); R07.9 Chest pain, unspecified; M79.10 Myalgia, unspecified site; R06.02 Shortness of breath; R05.9 Cough, unspecified; I11.0 Hypertensive heart disease with heart failure; I50.9 Heart failure, unspecified; E78.00 Pure hypercholesterolemia, unspecified; J44.9 Chronic obstructive pulmonary disease, unspecified; X58.XXXA Exposure to other specified factors, initial encounter; Y93.89 Activity, other specified; Y92.89 Other specified places as the place of occurrence of the external cause; Y99.8 Other external cause status; Z95.0 Presence of cardiac pacemaker
CPT/HCPCS: 36415; 71045; 71275; 80053; 82550; 82553; 83880; 84484; 85025; 85379; 85610; 85730; 93005; 93971; 94640; 96374; 99285; J2920; Q9965

== ENCOUNTER → 2022-06-07 | Outpatient (CLI) | payer MEDICARE | END | disposition home or self-care (01) | LOC: NPLAB 16:26 | PROVIDERS: ATTEND Specialist | DX: R05.9 Cough, unspecified (principal); Z20.822 Contact with and (suspected) exposure to COVID-19 | CPT/HCPCS: 87637 ==